=== PATIENT | female | born 1950 | race Caucasian/White ===

== ENCOUNTER → 2020-11-30 | Outpatient (CLI) | payer MEDICARE ==
[~2020-11-30] MED LIST: APIX5TAB3 PO; ASPI-630 PO; ATOR10TA60 PO; CETI10TA74 PO; CHOL10004 PO; DICY20TA3 PO; FURO20TA3 PO; IPRA3AMP29 NEB; LEVO100T5 PO; MONT10TA80 PO; NORT25CA PO; OMEG-33 PO; PANT40TA6 PO; POLY17PO5 PO; POTA10TA5 PO; flonase INH
== END ==
LOC: LAB 08:03
PROVIDERS: ATTEND Nurse Anesthetist, Certified Registered
DX: Z01.812 Encounter for preprocedural laboratory examination (principal); Z86.010 Personal history of colon polyps; Z20.822 Contact with and (suspected) exposure to COVID-19
CPT/HCPCS: U0003

== ENCOUNTER → 2020-12-04 | Day surgery (SDC) | payer MEDICARE, OTHER ==
[~2020-12-04] MED LIST changes: +IPRATRPIUM/ALBUTEROL 0.5/2.5MG 3 ML NEBU. NEB PRN; +IV RINGERS SOLUTION,LACTATED 1,000 ML IV SCH; +LIDOCAINE 2% PF 5 ML VIAL. ONE; +MIDAZOLAM HCL PF 2 MG/2 ML VIAL. IV ONE; +ONDANSETRON PF 4 MG/2 ML VIAL. IV PRN; +PROPOFOL 10,000 MCG/ML (20ML) VIAL IV ONE
[2020-12-04 10:34] VITALS: BP 138/72
--- NOTE | 2020-12-06 12:08 | PATHOLOGY ---
[facility] Accession Number: [id number] . 01 Material submitted: . PART A: ileo-cecal valve - ILEOCECAL VALVE POLYP BIOPSY PART B: sigmoid colon - SIGMOID POLYP BIOPSY . 01 Clinical history: . COLONOSCOPY HISTORY OF POLYPS . 02 Diagnosis: A. Colon biopsies, ileocecal valve polyp: - Tubular adenoma. . B. Colon biopsies, sigmoid polyp: - Tubular adenoma. ([facility]; 12/06/2020) [facility] 12/06/2020 0950 Local . 02 Comment: There is no high-grade dysplasia or evidence of malignancy. ([facility]:jody; 12/06/2020) . . 02 Electronically signed: . John Sibley MD, Pathologist NPI- [id number] . 01 Gross description: . A. Received in formalin labeled "Krysten Garner, ileocecal valve polyp" are 2 fragments of ta-brown soft tissue measuring 0.4 x 0.3 x 0.2 cm and 0.4 x 0.3 x 0.3 cm. The specimen is submitted entirely in A1. . B. Received in formalin labeled "Krysten Garner sigmoid polyp biopsy" are 3 fragments of ta-brown soft tissue measuring in aggregate 0.9 x 0.3 x 0.3 cm. The specimen is submitted entirely in B1. ([facility]; 12/05/2020) [facility]GZA 12/06/2020 0949 Local . 02 Pathologist provided ICD-10: D12.0, D12.5 . 02 CPT . 507242, [id number] Specimen Comment: A courtesy copy of this report has been sent to [phone], [phone] Specimen Comment: [id number] Specimen Comment: Report sent to / DR TURNER Performed at: 01 [facility] [address], [place], [place] [id number] MD [address] MD Phone: [phone] Performed at: 02 [facility] [address] [place], [place] [id number] MD John Sibley MD Phone: [phone]
== END | disposition home or self-care (01) ==
LOC: SURG 08:36
PROVIDERS: ATTEND Internal Medicine Gastroenterology
DX: Z12.11 Encounter for screening for malignant neoplasm of colon (principal); D12.0 Benign neoplasm of cecum; D12.5 Benign neoplasm of sigmoid colon; K64.8 Other hemorrhoids; K57.30 Diverticulosis of large intestine without perforation or abscess without bleeding; Z86.010 Personal history of colon polyps; G47.33 Obstructive sleep apnea (adult) (pediatric); K21.9 Gastro-esophageal reflux disease without esophagitis; Z79.899 Other long term (current) drug therapy
CPT/HCPCS: 45380; 88305; J2001; J2704; J7120